=== PATIENT | male | born 1985 | race Caucasian/White ===

== ENCOUNTER 2019-08-17 10:31 | Emergency (ER) | payer OTHER ==
[~2019-08-17] VITALS: Ht 172.7 cm; Wt 104.5 kg
[2019-08-17 11:24] VITALS: BP 142/95
[2019-08-17] MEDS ORDERED: NO HOME MEDS (11:38)
[2019-08-17 11:40] LABS: HEMOGLOBIN 16.2 g/dl (14.0-17.9)
[2019-08-17 11:42] LABS: BASOPHILS % (AUTO) 0.5 % (0-1); EOSINOPHILS # (AUTO) 0.1 X10'3 (0-0.9); EOSINOPHILS % (AUTO) 1.8 % (0-6); HEMATOCRIT 48.4 % (42.0-52.0); LYMPHOCYTES # (AUTO) 1.9 X10'3 (1.1-4.8); LYMPHOCYTES % (AUTO) 28.6 % (21-51); MEAN CORPUSCULAR HGB CONC 33.5 g/dL (33.0-36.5); MEAN CORPUSCULAR VOLUME 92.6 FL (78-98); MEAN PLATELET VOLUME 6.7 FL (7.4-10.4); MONOCYTES # (AUTO) 0.5 X10'3 (0-0.9); NEUTROPHILS # (AUTO) 4.1 X10'3 (1.8-7.7); NEUTROPHILS % (AUTO) 61.1 % (42-75); PLATELET COUNT 253 X10'3 (140-440); RED BLOOD COUNT 5.23 X10'6 (4.70-6.10); RED CELL DISTRIBUTION WIDTH 12.9 % (11.5-14.5); WHITE BLOOD COUNT 6.7 X10'3 (4.5-11.0)
[2019-08-17] MEDS ORDERED: iohexol 350MG/ML 100ml bottle IV ONE (11:51)
[2019-08-17] MEDS ORDERED: iohexol 350 MG/ML 50ML vial IV ONE (11:51)
[2019-08-17 11:56] LABS: ALANINE AMINOTRANSFERASE 76 U/L (12-78); ALKALINE PHOSPHATASE 118 IU/L (46-116); ANION GAP 7 (8-16); ASPARTATE AMINO TRANSFERASE 62 U/L (10-37); BILIRUBIN,TOTAL 1.3 MG/DL (0.1-1.0); BLOOD UREA NITROGEN 13 MG/DL (7-18); BUN/CREATININE RATIO 13.3 (5.4-32.0); CALCIUM 8.8 MG/DL (8.5-10.1); CHLORIDE 104 MMOL/L (99-107); CREATININE 0.98 MG/DL (0.60-1.10); GLUCOSE 102 MG/DL (70-104); POTASSIUM 3.8 MMOL/L (3.5-5.1); SODIUM 140 MMOL/L (135-145); TOTAL CARBON DIOXIDE 28.6 MMOL/L (24-32); eGFR 89 ML/MIN
--- NOTE | 2019-08-17 12:17 | NUR ---
PT AT [facility]
[2019-08-17] MEDS ORDERED: CEPH250T PO (14:18)
== END 2019-08-17 14:39 | disposition home or self-care (01) ==
LOC: ER 10:31
DX: S81.831A Puncture wound without foreign body, right lower leg, initial encounter (principal); W34.00XA Accidental discharge from unspecified firearms or gun, initial encounter; Y93.89 Activity, other specified; Y92.89 Other specified places as the place of occurrence of the external cause; Y99.9 Unspecified external cause status
CPT/HCPCS: 73706; 80053; 85025; 85610; 93971; 99285; Q9967